=== PATIENT | male | born 1995 | race Two or more races ===

== ENCOUNTER 2021-01-13 15:32 | Emergency (ER) | payer SELFPAY ==
[~2021-01-13] VITALS: Ht 180.3 cm; Wt 61.7 kg
[2021-01-13 16:49] VITALS: BP 127/66
== END 2021-01-13 16:23 | disposition home or self-care (01) ==
LOC: ER 15:35
DX: R07.89 Other chest pain (principal); B02.9 Zoster without complications; Z87.891 Personal history of nicotine dependence
CPT/HCPCS: 71046; 93005